=== PATIENT | female | born 1965 | race African-American/Black ===

== ENCOUNTER 2017-01-04 06:02 | Inpatient (IN) ==
[2016-12-31 09:17] LABS: Basophils % 0.5 % (0.0-0.8); Eosinophils # 0.1 10*3/uL (0.0-0.87); Eosinophils % 1.1 % (0.00-10.9); Hemoglobin 10.6 GM/DL (12.0-16.0); Immature Granulocytes % 0.4 %; Immature Granulocytes Absolute 0.03 #; Lymphocytes # 2.8 10*3/uL (1.4-4.0); Lymphocytes % 37.3 % (21.3-54.2); Mean Corpuscular HGB Conc 29.4 GM/DL (32-36); Mean Corpuscular Hemoglobin 21 PG (27-34); Mean Corpuscular Volume 69.8 FL (87-102); Mean Platelet Volume 10.2 FL (9.6-12.0); Monocytes # 0.9 10*3/uL (0.11-0.8); Monocytes % 11.9 % (1.7-12.7); Neutrophils # 3.6 10*3/uL (1.4-7.4); Neutrophils % 48.8 % (38.7-73.9); Platelet Count 429 T/CUMM (130-400); Red Blood Count 5.16 MC/CUMM (3.8-5.5); Red Cell Distribution Width 16.2 % (9.3-17.3); White Blood Count 7.5 T/CUMM (4-12)
[2016-12-31 09:58] LABS: Alanine Aminotransferase 47 U/L (13-56); Albumin 3.2 G/DL (3.4-5.0); Alkaline Phosphatase 87 U/L (45-117); Aspartate Amino Transferase 28 U/L (0-37); Bilirubin,Total < 0.39 MG/DL (0.2-1.0); Blood Urea Nitrogen 15 MG/DL (7-18); Calcium 9.7 MG/DL (8.5-10.1); Glucose 245 MG/DL (74-106); Osmolality,Calculated 276.2 MOS/KG (273-304); Potassium 4.7 MMOL/L (3.5-5.1); Sodium 134 MMOL/L (136-145); Total Protein 8.5 G/DL (6.4-8.3)
[2017-01-04] MEDS ORDERED: ceFAZolin 1,000 MG VIAL ONE (07:23)
[2017-01-04] MEDS ORDERED: SODIUM CHLORIDE 0.9% 50 ML IV ONE (07:23)
[2017-01-04] MEDS ORDERED: TISSUE ADHESIVE 1 EACH APPLICATOR TOP ONE (10:36)
[2017-01-04] MEDS ORDERED: ONDANSETRON 4 MG/2 ML VIAL IV PRN ×2 (12:15→13:18)
[2017-01-04] MEDS ORDERED: HYDROmorphone 2 MG/1 ML VIAL ONE (12:18)
[2017-01-04] MEDS ORDERED: fentaNYL 100 MCG/2 ML VIAL ONE (12:21)
[2017-01-04] MEDS: HYDROmorphone 2 MG/1 ML VIAL IV PRN ×3 (12:21→12:46)
[2017-01-04] MEDS ORDERED: PROPOFOL 200 MG/20 ML VIAL IV ONE (12:21)
[2017-01-04] MEDS ORDERED: SEVOFLURANE 1 UNIT/15 MINUTE INH ONE (12:21)
[2017-01-04] MEDS ORDERED: NEOSTIGMINE 10 MG/10 ML VIAL ONE (12:22)
[2017-01-04] MEDS ORDERED: KETOROLAC 30 MG/1 ML VIAL ONE (12:22)
[2017-01-04] MEDS ORDERED: ONDANSETRON 4 MG/2 ML VIAL ONE (12:22)
[2017-01-04] MEDS ORDERED: MIDAZOLAM 2 MG/2 ML VIAL ONE (12:22)
[2017-01-04] MEDS ORDERED: GLYCOPYRROLATE 0.4 MG/2 ML VIAL ONE (12:22)
[2017-01-04] MEDS ORDERED: ACETAMINOPHEN 1,000 MG/100 ML VIAL IV ONE (12:23)
[2017-01-04] MEDS ORDERED: LACTATED RINGERS 1,000 ML IV ONE (12:23)
[2017-01-04] MEDS ORDERED: ROCURONIUM 100 MG/10 ML VIAL IV ONE (12:23)
[2017-01-04] MEDS ORDERED: LACTATED RINGERS 1,000 ML IV SCH ×2 (12:30)
[2017-01-04] MEDS ORDERED: KETOROLAC 15 MG/1 ML VIAL IV PRN (13:18)
[2017-01-04] MEDS ORDERED: GLUCAGON 1 MG VIAL IM PRN (13:18)
[2017-01-04] MEDS ORDERED: DEXTROSE 50% 25 GM/50 ML VIAL IV PRN (13:18)
[2017-01-04 14:49] LABS: Hematocrit 32.4 VOL% (35.7-47.0); Hemoglobin 9.7 GM/DL (12.0-16.0)
[2017-01-04] MEDS ORDERED: INFLUENZA VIRUS VACCINE 0.5 ML SYRINGE IM ONE (15:30)
[2017-01-04] MEDS ORDERED: PNEUMOCOCCAL VACCINE (23 VALENT) 0.5 ML VIAL IM ONE (15:31)
[2017-01-04] MEDS: LACTATED RINGERS 1,000 ML IV SCH ×2 (17:01→22:18)
[2017-01-04] MEDS: INSULIN REGULAR 100 UNIT/ML SUBCUT SCH ×2 (17:07→21:54)
[2017-01-04 22:39] LABS: Hematocrit 33.3 VOL% (35.7-47.0); Hemoglobin 9.9 GM/DL (12.0-16.0)
[2017-01-05 03:25] LABS: Basophils % 0.5 % (0.0-0.8); Eosinophils # 0.1 10*3/uL (0.0-0.87); Eosinophils % 1.4 % (0.00-10.9); Hematocrit 32.2 VOL% (35.7-47.0); Hemoglobin 9.7 GM/DL (12.0-16.0); Immature Granulocytes % 0.2 %; Immature Granulocytes Absolute 0.01 #; Lymphocytes # 2.2 10*3/uL (1.4-4.0); Lymphocytes % 35.1 % (21.3-54.2); Mean Corpuscular HGB Conc 30.1 GM/DL (32-36); Mean Corpuscular Hemoglobin 21 PG (27-34); Mean Platelet Volume 9.9 FL (9.6-12.0); Monocytes # 0.7 10*3/uL (0.11-0.8); Monocytes % 11.3 % (1.7-12.7); Neutrophils # 3.2 10*3/uL (1.4-7.4); Neutrophils % 51.5 % (38.7-73.9); Platelet Count 363 T/CUMM (130-400); Red Blood Count 4.67 MC/CUMM (3.8-5.5); Red Cell Distribution Width 15.9 % (9.3-17.3); White Blood Count 6.3 T/CUMM (4-12)
[2017-01-05 03:59] LABS: Calcium 8.3 MG/DL (8.5-10.1); Osmolality,Calculated 279.7 MOS/KG (273-304); Potassium 3.7 MMOL/L (3.5-5.1)
[2017-01-05] MEDS: LACTATED RINGERS 1,000 ML IV SCH (05:46)
[2017-01-05] MEDS: ENOXAPARIN 40 MG/0.4 ML SYRINGE SUBCUT SCH (05:46)
[2017-01-05 06:21] LABS: Hematocrit 31.5 VOL% (35.7-47.0); Hemoglobin 9.4 GM/DL (12.0-16.0)
[2017-01-05] MEDS: MULTIVITAMIN (CENTRUM) TABLET PO SCH (09:49)
[2017-01-05] MEDS: SIMVASTATIN 20 MG TABLET PO SCH (09:49)
[2017-01-05] MEDS: ASPIRIN EC 81 MG TABLET PO SCH (09:49)
[2017-01-05] MEDS: INSULIN REGULAR 100 UNIT/ML SUBCUT SCH ×4 (09:50→20:47)
[2017-01-05] MEDS: SERTRALINE 100 MG TABLET PO SCH (09:50)
[2017-01-05] MEDS: HYDROmorphone 2 MG/1 ML VIAL IV PRN (20:50)
[2017-01-06] MEDS: HYDROmorphone 2 MG/1 ML VIAL IV PRN (02:20)
[2017-01-06] MEDS: ENOXAPARIN 40 MG/0.4 ML SYRINGE SUBCUT SCH (06:11)
[2017-01-06 06:29] LABS: Basophils % 0.2 % (0.0-0.8); Eosinophils # 0.1 10*3/uL (0.0-0.87); Eosinophils % 0.5 % (0.00-10.9); Hematocrit 31.7 VOL% (35.7-47.0); Hemoglobin 9.4 GM/DL (12.0-16.0); Immature Granulocytes % 0.9 %; Immature Granulocytes Absolute 0.08 #; Lymphocytes # 2.2 10*3/uL (1.4-4.0); Lymphocytes % 23.9 % (21.3-54.2); Mean Corpuscular HGB Conc 29.7 GM/DL (32-36); Mean Corpuscular Hemoglobin 21 PG (27-34); Mean Corpuscular Volume 69.8 FL (87-102); Mean Platelet Volume 9.6 FL (9.6-12.0); Monocytes # 1.1 10*3/uL (0.11-0.8); Monocytes % 11.9 % (1.7-12.7); Neutrophils # 5.7 10*3/uL (1.4-7.4); Neutrophils % 62.6 % (38.7-73.9); Platelet Count 334 T/CUMM (130-400); Red Blood Count 4.54 MC/CUMM (3.8-5.5); White Blood Count 9.1 T/CUMM (4-12)
[2017-01-06] MEDS: SIMVASTATIN 20 MG TABLET PO SCH (08:44)
[2017-01-06] MEDS: MULTIVITAMIN (CENTRUM) TABLET PO SCH (08:44)
[2017-01-06] MEDS: INSULIN REGULAR 100 UNIT/ML SUBCUT SCH ×2 (08:44→13:06)
[2017-01-06] MEDS: ASPIRIN EC 81 MG TABLET PO SCH (08:45)
[2017-01-06] MEDS: SERTRALINE 100 MG TABLET PO SCH (08:45)
[2017-01-06 11:34] VITALS: BP 149/86
== END 2017-01-06 13:47 | disposition home or self-care (01) | DRG 615 ==
LOC: N.OR 06:02 → N.SDSINP 06:04 → EDSDCBED 13:05 → N.3E 13:05 → N.OR 01-06 13:47 → N.3E 01-16 12:11
PROVIDERS: ADMIT Surgery; ATTEND Surgery